=== PATIENT | female | born 1965 | race Native Hawaiian/Other Pacific Islander ===

== ENCOUNTER 2016-09-14 18:14 | Emergency (ER) | payer OTHER ==
[2016-09-14] MEDS ORDERED: ZOLPIDEM 5 MG TABLET PO PRN (22:50)
== END 2016-09-14 23:01 | disposition home or self-care (01) ==
DX: R20.8 Other disturbances of skin sensation (principal); G47.00 Insomnia, unspecified; F43.9 Reaction to severe stress, unspecified
CPT/HCPCS: 36415; 70450; 80048; 85025; 93880; 99283; 99284; A9270

== ENCOUNTER 2017-02-12 08:24 | Emergency (ER) | payer OTHER ==
[2017-02-12 08:33] VITALS: BP 153/78
--- NOTE | 2017-02-12 08:53 | ED Physician Documentation ---
History of Present Illness - Stated complaint Stated Complaint: FELL LT KNEE PX - Chief complaint Chief Complaint: Ext Problem - History obtained from History obtained from: Patient - Additonal information Additional information: She is a 51-year-old female without any significant medical history who fell on her left knee shortly prior to arrival. The patient slipped and fell with all of her weight on the left knee. She fell against relatively hard surface consisting of wood. She is ambulatory without too much difficulty on the leg but complains of localized pain to the kneecap. The knee is more painful with movement and better with rest. She denies any other knee or orthopedic injury. She denies any other injury to any other body part at this time. This was a slip and fall. Review of systems: For pertinent positive and negatives in the review of systems please see the history of present illness, otherwise all other systems have been reviewed and are negative. Dragon disclaimer: Parts of this medical record were created using voice recognition technology. Because of the inherent limitations of this system, occasional same sounding word substitutions do occur and persist despite proofreading. Please read the document for context. Review of Systems Musculoskeletal: reports: Joint pain, Joint swelling. 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 - Present Medications Home Medications: Ambulatory Orders Medication Instructions Recorded Confirmed Ibuprofen 600 mg PO TID PRN #14 tablet 02/12/17 Tramadol HCl 50 mg PO Q8HR PRN #14 tablet 02/12/17 - Allergies Allergies/Adverse Reactions: Allergies Allergy/AdvReac Type Severity Reaction Status Date / Time No Known Drug Allergies Allergy Verified 09/14/16 18:20 - Social History Does the pt smoke?: No Smoking Status: Never smoker Does the pt drink ETOH?: No Does the pt have substance abuse?: No PD ED PE NORMAL - Vitals Vital signs reviewed: Yes - General General: Alert and oriented X 3, No acute distress, Well developed/nourished - Extremities Extremities: No deformity, Other (On examination of the patient's patella there is isolated patellar tenderness. There is no significant medial, lateral tenderness.) Results - Vitals Vitals: Vital Signs - 24 hr 02/12/17 08:31 Temperature 36.6 C Heart Rate 68 Respiratory 12 Rate Blood Pressure 153/78 H O2 Saturation 96 Oxygen O2 Source Room air PD MEDICAL DECISION MAKING - ED course ED course: Patient fell on her left kneecap. She is tender about the kneecap and has some bruising already. There is no ligamentous laxity or limitation in range of motion testing of the affected left leg. Radiographically the patella appears normal. On reexamination there is a little more bruising but the injury appears to be isolated to patella only. I suspect she should do well she demonstrated ambulatory movement in emergency department without difficulty. I am discharging her home with recommendations to rest, ice, elevate and will prescribe a small amount anti-inflammatory and pain medication as needed. Disposition: To home Clinical impression: 1. Left patellar contusion Departure - Departure Disposition: Home, Self Care Clinical Impression: Patellar contusion Condition: Good Instructions: Kneecap and Knee Joint, ED Sprain Knee Follow-Up: Jazmin Velasquez ARNP [Primary Care Provider] - Prescriptions: Tramadol HCl 50 mg PO Q8HR PRN #14 tablet PRN Reason: Pain Ibuprofen 600 mg PO TID PRN #14 tablet PRN Reason: Pain
--- NOTE | 2017-02-12 09:31 | XRAY Preliminary Report ---
Exam: XR Knee 3 View LT IMPRESSION: Small to moderate amount of knee joint effusion and anterolateral knee soft tissues swell ing without evidence of fracture, bony injury or subluxation; internal derangement cannot be excluded . [facility] SITE ID: [id number]
--- NOTE | 2017-02-12 09:34 | XRAY Report ---
EXAM: RIGHT KNEE RADIOGRAPHY EXAM DATE: 02/12/2017 09:00 AM. CLINICAL HISTORY: Fall. COMPARISON: None. TECHNIQUE: 3 views. FINDINGS: Bones: No fractures or bone lesions. Joints: No significant degenerative arthritis. There is a small to moderate amount of effusion. No nguyen bluxations. Soft Tissues: There is anterior lateral knee soft tissue swelling without radiopaque foreign body or soft tissue calcification. IMPRESSION: Small to moderate amount of knee joint effusion and anterolateral knee soft tissues swell ing without evidence of fracture, bony injury or subluxation; internal derangement cannot be excluded . [facility] Referring Provider Line: [phone] SITE ID: [id number]
== END 2017-02-12 09:24 | disposition home or self-care (01) ==
LOC: ED 08:24
DX: S80.02XA Contusion of left knee, initial encounter (principal); W01.0XXA Fall on same level from slipping, tripping and stumbling without subsequent striking against object, initial encounter
CPT/HCPCS: 99283

== ENCOUNTER 2020-02-05 14:04 | Outpatient (CLI) | payer OTHER ==
[2020-02-05 14:53] VITALS: BP 122/80
--- NOTE | 2020-02-05 14:53 | SLEEP CARE CONSULTATION ---
Information from patient questionnaire entered by Teresa Cazares. I have reviewed and concur with the information entered by Teresa Cazares. This document represents the service I personally performed and the decisions made by me, Faith Diggs ARNP. History of Present Illness Service Date and Time: 02/05/2020 1404 Reason for Visit: New patient Chief Complaint: reports: Insomnia (hard to shut off mind to go to sleep), Unrefreshed sleep (usually not), Snoring, Fatigue (sometimes, with lack of sleep), Frequent awakenings at night (more since on new diet and increase in water consumption), Other (referral to determine for sleep apnea for pre-op bariatric surgery). denies: Excessive daytime sleepiness, Observed pauses in breathing Date of Onset: 5-6 years Usual bedtime: [id number] Time it takes to fall asleep: 1+ hours Snores at night: Yes Observed to quit breathing while asleep: No Sleeps alone due to snoring: No Number of times waking at night: 1-3 Reasons for waking at night: reports: Bathroom (void/urinate). denies: Choking, Snoring, Gasping for air, Pain, Other Toss, Turn, or Twitch while sleeping: Yes Recalls having dreams: Yes Usually gets out of bed at: [id number], sleeps into 0730 on weekends Feels refreshed in the morning: No Morning headache: No Sleepy or fatigued during the day: Yes (tired) Ever fallen asleep while driving: No Takes day naps: Yes (1-2 times a week, 12 minutes) Dreams during day naps: No Prior sleep studies: No Additional HPI information: I had the pleasure of seeing TRUPTI US today regarding the possibility of her having a sleep disorder. Her current complaints are unrefreshed sleep, daytime fatigue, snoring and evaluation for pre-bariatric surgery. 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 She normally stays up late because she cannot turn her mind off. She does snore, according to her , but he has not seen any pauses in breathing. She is in the process of preparing for bariatric surgery and states the surgeon wants her evaluated for sleep apnea. She is eating a low fat, high protein diet with an increase in water i ntake that is causing her to get up more often during the night for the bathroom. - Parasomnia Symptoms Ever been unable to move upon waking from sleep: No Walks in sleep: No Talks in sleep: No Ever acted out dreams in sleep: No Ever felt weak in the knees when startled or emotional: No Bothered by creepy, crawly, restless sensations in legs: No Problems with memory or concentration: No Subjective Initial [place] Sleepiness Scale score: 3 Past Medical History Past Medical History: reports: Arrythmia (slight heart murmur), Anxiety, Other (trigeminal neuralgia and Sjorgens with unspecified organ involvement (CMS/HCC)). 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 Patient is and lives in [place]. Have you smoked in the past 12 months: No Alcohol use: Yes Alcohol amount and frequency: 5 glasses a year Caffeine use: Yes Caffeine amount and frequency: 0-1 cup for 3-4 times a week; stopped in last few weeks to prepare for surg Family History Family history of sleep disordered breathing: Yes Family Hx Sleep Apnea: Mother: Snoring, Sibling: Snoring, Sleep apnea - Treated Allergies and Home Medications Drug allergies reviewed: Yes (NKDA) Home medication list reviewed: Yes (not taking prescribed med for trigeminal neuralgia; Calcium and MVT) Review of Systems Weight gain over past 5 years: 30+ Cardiovascular: reports: other (heart murmur - mild). denies: high blood pressure, palpitations, chest pain, irregular heart rate or pulse, leg or foot swelling Respiratory: denies: shortness of breath, wheeze, chronic cough Gastrointestinal: reports: nausea, diarrhea, other (IBS). denies: heartburn, difficulty swallowing Urinary: denies: incontinence Neurological: denies: headaches, seizure, head trauma, speech dysfunction, gait or balance problems Psychiatric: reports: anxiety. denies: Attention Deficit Hyperactivity, depression Ear/Nose/Throat: reports: dry mouth/throat (since last year, not taking medication due to nausea reaction), wisdom teeth removed. denies: nasal congestion, sinus problems, nose bleeds, hoarseness, injury to nose, tonsillectomy Endocrine: denies: thyroid disease Musculoskeletal: reports: joint pain, joint swelling. denies: muscle pain or cramping, mobility problems Immunologic: reports: other (eczema, seasonal). denies: allergies to food or environment Physical Exam Blood Pressure: 122/80 Cuff size: long Heart Rate: 72 O2 Saturation: 98 Height: 5 ft 1.5 in Weight: 247 lb 9.6 oz Body Mass Index: 46.0 BMI Classification: Morbidly Obese Neck circumference: 16 (inches) HEENT: No craniofacial malformation Nostrils: patent to airflow Turbinates: normal Septum: midline Mouth and throat: narrow oropharynx Soft palate: normal Hard palate: normal Uvula: normal Uvula visualization: 25% Mallampati Class III Tongue: normal in size Tonsils: 1+ Chin and jaw: normal size and position Neck: normal w/o lymphadenopathy or thyromegaly Heart: regular rate and rhythm Lungs: clear bilaterally Impression and Plan 1. Suspected Obstructive Sleep Apnea-Hypopnea Syndrome, as suggested by a history of loud and irregular snoring, insomnia, unrefreshed sleep, and excessive daytime sleepiness. Patient is being prepared for bariatric surgery and needs BOB evaluation as well prior to surgery. Narrow oropharynx and obesity are common predisposing factors for obstructive sleep apnea-hypopnea syndrome. I recommend proceeding to polysomnography to confirm the diagnosis and to assess severity. If the patient has significant sleep disordered breathing, a manual CPAP titration study will also be performed to find the optimal treatment pressure. I informed the patient of what the sleep studies involve and after some discussion, obtained agreement to proceed. The pathophysiology of obstructive sleep apnea-hypopnea syndrome was discussed with the patient and health risks of cardiovascular and cerebrovascular disease if not treated. AASM brochure for obstructive sleep apnea-hypopnea syndrome given and reviewed. Risks of drowsy driving discussed in detail and patient advised to avoid long distance driving and to ice puller at the first sign of drowsiness. Patient agreed to plan. * Schedule polysomnography +- manual CPAP titration study. * Avoid long distance driving or driving when feeling sleepy. * Avoid alcohol, sedative and muscle relaxant around bedtime. * Continue to attempt to lose weight. * Review instructions provided by trained office staff on how to prepare for the sleep study. * Return for follow-up after sleep study completed. Visit Type: In Office Time Spent with Patient (minutes): 32 Provider Statement: I spent 100% of the Face to Face Visit with the patient with greater than 50% spent counseling the patient and coordination of care.
== END 2020-02-05 14:05 | disposition home or self-care (01) ==
LOC: SC 14:04
PROVIDERS: ATTEND Nurse Practitioner Family
DX: R06.83 Snoring (principal); G47.10 Hypersomnia, unspecified; G47.8 Other sleep disorders; E66.01 Morbid (severe) obesity due to excess calories; Z68.42 Body mass index [BMI] 45.0-49.9, adult
CPT/HCPCS: 99204; 99212

== ENCOUNTER 2020-03-05 19:30 | Outpatient (CLI) | payer OTHER | END 2020-03-05 23:59 | disposition home or self-care (01) | LOC: SC 19:30 | PROVIDERS: ATTEND Nurse Practitioner Family | DX: G47.33 Obstructive sleep apnea (adult) (pediatric) (principal); E66.01 Morbid (severe) obesity due to excess calories; Z68.42 Body mass index [BMI] 45.0-49.9, adult | CPT/HCPCS: 95806 ==

== ENCOUNTER 2020-03-13 09:48 | Outpatient (CLI) | payer OTHER ==
--- NOTE | 2020-03-13 10:36 | SLEEP CARE CONSULTATION ---
Information from patient questionnaire entered by Loree Soni. I have reviewed and concur with the information entered by Loree Soni. This document represents the service I personally performed and the decisions made by , Faith Diggs ARNP. History of Present Illness Service Date and Time: 03/13/2020947 Initial [place] Sleepiness Scale score: 3 (in 2020) Current [place] Sleepiness Scale score: 6 Additional HPI information: TRUPTI US returns for follow up and results of the recently performed home sleep study. I explained the pathophysiology behind obstructive sleep apnea. We then spent quite a bit of time discussing different treatment options. For mild obstructive sleep apnea, surgery and oral appliance are alternatives to nasal CPAP therapy but in moderate or severe cases, nasal CPAP is the most effective and reliable treatment. Because apnea is primarily in supine position, then positional management therapy could be effective. Methods discussed such as positioning with pillows, using a T-shirt with tennis balls in the back, and shown commercial products that have a pillow format on back to prevent supine sleep. I reviewed the impact of weight changes on sleep apnea and strongly recommended losing weight. After some discussion, the patient would like to think about CPAP therapy or oral appliance. She was given the AASM pamphlets for Non-pap treatments and Pap treatment tips and reviewed with patient. Sleep Study - Results Type of Sleep Study: Home sleep study Prior sleep studies: No Polysomnography/Home Sleep Study results: Based on 4% Calculation: The AHI 4% calculation of 9.1 per hour of recording time was based on a total of 4 scored apneas and 65 scored hypopneas with 4% desaturations. Supine AHI4%: 11.4 per hour. Non-supine AHI4%: 5.1 per hour. Oxygen Summary: Patient's baseline O2 saturation was 93.9 %. The patient spent 26.9 minutes at an oxygen saturation less than 90%, and 1.2 minutes less than 85%. The desaturation index was 10.3 events per hour sleep time. The lowest saturation was 78.7 %. SNORING: The percent of the study time spent snoring was 0.0 %. The Snoring Count was 1 . The Snoring Index was 0.1 . PULSE RATE REVIEW: The mean heart rate was 59 beats per minute. The rate ranged from a low of 35 to a high of 75 beats per minute. DIAGNOSIS CODE: Obstructive Sleep Apnea G47.33 This patient has mild obstructive sleep apnea associated with moderate hypoxia, occurring more frequently during supine sleep. Allergies and Home Medications Drug allergies reviewed: Yes (NKDA) Home medication list reviewed: Yes (OTC vitamin D) Review of Systems Review of systems same as previous: Yes (no changes) Physical Exam Heart Rate: 77 O2 Saturation: 95 Height: 5 ft 1.5 in Weight: 234 lb Body Mass Index: 43.4 BMI Classification: Morbidly Obese Impression and Plan 1. Obstructive Sleep Apnea-Hypopnea Syndrome, mild, with lowest oxygen satura tion of 78.7%. Obviously this is the cause of the patients symptoms of unrefreshed sleep, and excessive daytime sleepiness. Positive pressure therapy could benefit her anxiety and improve overall health. As mentioned above, we discussed thoroughly the different options for therapy of her BOB and the patient will consider her options between an oral device and CPAP therapy. Since her apnea is more severe supine she was cautioned to sleep on her side until her new therapy is in place. * Patient to notify us of her choice of therapy. * Continue efforts to lose weight. * Avoid alcohol consumption near bedtime. * Avoid supine sleep * The patient is again cautioned about driving until sleepiness completely resolves. * Return in 1-2 months after CPAP obtained or 3 months after oral appliance. I will assess response to therapy and compliance at that time. Visit Type: In Office Time Spent with Patient (minutes): 25 Provider Statement: I spent 100% of the Face to Face Visit with the patient with greater than 50% spent counseling the patient and coordination of care.
== END 2020-03-13 09:49 | disposition home or self-care (01) ==
LOC: SC 09:48
PROVIDERS: ATTEND Nurse Practitioner Family
DX: G47.33 Obstructive sleep apnea (adult) (pediatric) (principal); E66.01 Morbid (severe) obesity due to excess calories; Z68.41 Body mass index [BMI] 40.0-44.9, adult
CPT/HCPCS: 99212; 99213

== ENCOUNTER 2020-06-23 13:36 | Outpatient (CLI) | payer OTHER ==
--- NOTE | 2020-06-24 13:19 | Mammography Report ---
BILATERAL DIGITAL SCREENING MAMMOGRAM 3D/2D: 06/23/2020 CLINICAL: Routine screening. Comparison is made to exams dated: 02/08/2018 mammogram, 09/30/2016 mammogram, and 09/30/2015 mammogram - [facility]. There are scattered fibroglandular elements in both breasts. No significant masses, calcifications, or other findings are seen in either breast. There has been no significant interval change. IMPRESSION: NEGATIVE There is no mammographic evidence of malignancy. A 1 year screening mammogram is recommended. This exam was interpreted at Station ID: [id number]. NOTE: For mammograms, a report in lay terms will be sent to the patient. Approximately 15% of breast malignancies will not be visualized mammographically. In the management of a palpable breast mass, a negative mammogram must not discourage biopsy of a clinically suspicious lesion. Electronically Signed By: Josh Lynn M.D., jr/peter:06/23/2020 16:55:34 ACR BI-RADS Category 1: Negative [id number] PARENCHYMAL PATTERN: (A) - The breast(s) demonstrate(s) scattered fibroglandular densities. BI-RADS CATEGORY: (1) - 1 RECOMMENDATION: (ANNUAL) - Recommend routine annual screening mammography. [id number] 1 year screening LATERALITY: (B)
== END 2020-06-23 13:37 | disposition home or self-care (01) ==
LOC: DI.N 13:36
DX: Z12.31 Encounter for screening mammogram for malignant neoplasm of breast (principal)
CPT/HCPCS: 77067

== ENCOUNTER 2020-08-21 12:53 | Outpatient (CLI) | payer OTHER ==
--- NOTE | 2020-08-21 13:23 | SLEEP CARE CONSULTATION ---
Information from patient questionnaire entered by Loree Soni. I have reviewed and concur with the information entered by Loree Soni. This document represents the service I personally performed and the decisions made by me, Faith Diggs ARNP. History of Present Illness Service Date and Time: 08/21/2020 1253 Previous diagnosis: Mild, Obstructive Sleep Apnea-Hypopnea Syndrome AHI: 9.1 (in 2019) Reason for follow up: other (3 month with oral appliance) Prior sleep studies: Yes Year and Where: 2019 - [facility] Type of Sleep Study: Home sleep study HPI additional information: TRUPTI US was diagnosed to have mild, AHI 9.1, obstructive sleep apnea- hypopnea syndrome and returned today for oral appliance therapy three month follow-up. CPAP Compliance Data Compliance data discussion: She has been using the oral appliance nightly since receiving it since May 15, 2020. She took it out early only twice since then. She states it is very comfortable with occasional rubbing of device on sides of her mouth. She started with bands for the first 1.5 months but found them restrictive and stopped using them. 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 She has to get up several times a night to take care of her mother. She had her bariatric surgery and has lost a total of about 80 pounds. Subjective Initial [place] Sleepiness Scale score: 3 (in 2019) Current [place] Sleepiness Scale score: 6 Allergies and Home Medications Drug allergies reviewed: Yes (NKDA) Home medication list reviewed: Yes (omeprazole) Review of Systems Review of systems same as previous: No ([facility] weight loss surgery 05/2020) Physical Exam Heart Rate: 67 O2 Saturation: 95 Height: 5 ft 1.5 in Weight: 180 lb Weight change since last visit: 54 loss Body Mass Index: 33.4 BMI Classification: Obese Impression and Plan 1. Obstructive Sleep Apnea-Hypopnea Syndrome, mild, who has been on oral appliance therapy. On oral appliance therapy, the patient has better sleep quality and is more rested overall. Her husbands states she is not gasping during the night or having any pauses in breathing. She does not wake up with headaches. She is currently dealing with lots of life stressors including being a caregiver for her mother. She has no complaints with use of the oral appliance and states it is very comfortable. She did not have sleepiness symptoms prior to her last sleep study, it was just done prior to her bariatric surgery. Her current [place] is 6/24. We need to check effectiveness of her oral appliance and will order a HST/PSG to verify this. She would prefer to do a HST if possible. Patient's apnea severity and rationale for treatment to reduce apnea, improve sleep quality and reduce cardiovascular and cerebrovascular events was reviewed. * Continue oral appliance * Sleep study ordered to evaluate therapy efficiency * Continue to lose weight * Return for follow up after sleep study completed, or sooner if concerns arise Counseling Topics: Weight loss health impact Visit Type: In Office Time Spent with Patient (minutes): 21 Provider Statement: I spent 100% of the Face to Face Visit with the patient with greater than 50% spent counseling the patient and coordination of care.
== END 2020-08-21 12:54 | disposition home or self-care (01) ==
LOC: SC 12:53
PROVIDERS: ATTEND Nurse Practitioner Family
DX: G47.33 Obstructive sleep apnea (adult) (pediatric) (principal); E66.9 Obesity, unspecified; Z68.33 Body mass index [BMI] 33.0-33.9, adult
CPT/HCPCS: 99212; 99213

== ENCOUNTER 2020-09-16 11:02 | Outpatient (CLI) | payer OTHER | END 2020-09-16 11:03 | disposition home or self-care (01) | LOC: SC 11:02 | PROVIDERS: ATTEND Nurse Practitioner Family | DX: R09.02 Hypoxemia (principal) | CPT/HCPCS: 95806 ==

== ENCOUNTER 2020-10-01 11:06 | Outpatient (CLI) | payer OTHER ==
--- NOTE | 2020-10-01 11:38 | SLEEP CARE CONSULTATION ---
Information from patient questionnaire entered by Loree Soni. I have reviewed and concur with the information entered by Loree Soni. This document represents the service I personally performed and the decisions made by , Faith Diggs ARNP. History of Present Illness Service Date and Time: 10/01/2020 1106 Initial [place] Sleepiness Scale score: 3 (in 2019) Current [place] Sleepiness Scale score: 4 Additional HPI information: TRUPTI US returns for follow up and results of the recently performed home sleep study with oral appliance to check effectiveness of treatment. The patient was informed of the following findings: no significant sleep disordered breathing with an AHI of 4.0 and [place] oxygen saturation of 82%. Her supine AHI is 7.4 and nonsupine 0.98. Sleep Study - Results Type of Sleep Study: Home sleep study (with oral appliance) Prior sleep studies: Yes Year and Where: 2019 - [facility] Polysomnography/Home Sleep Study results: Physician Impression: The quality of the study is good. The length of the study is adequate (> 240 minutes). Please also see the tabulated and graphic data. 1. No significant sleep disordered breathing, with an AHI of 4.0/hr and [place] SaO2 of 82%. During the study, the patient had 3 apneas (3 obstructive, 0 central, 0 mixed) and 28 hypopneas. The longest episode lasted 64.0 seconds. The few respiratory events occurred almost exclusively during supine sleep (supine AHI was 7.4 and non-supine, 0.98). 2. Hypoxemia (ICD-10 R09.02), mild, with the lowest oxygen saturation of 82 % and 19.2 minutes with SaO2 under 90%. Baseline oxygen saturation was normal (Average oxygen saturation was 92%). Allergies and Home Medications Home medication list reviewed: Yes (stopped omeprazole) Review of Systems Review of systems same as previous: Yes (no changes) Physical Exam Heart Rate: 70 O2 Saturation: 98 Height: 5 ft 1.5 in Weight: 169 lb Body Mass Index: 31.4 BMI Classification: Obese Impression and Plan 1. Obstructive Sleep Apnea-Hypopnea Syndrome, mild. Patient returns after HST to check effectiveness of the oral appliance. Her [place] today is 4/24. She does feel overall more rested. The oral device is comfortable and easy to use. She still has a supine AHI of 7.4 and she was advised to adjust her oral device and follow up with her dentist as needed. She was advised to sleep more on her side because she is in normal range nonsupine. She has some shoulder pain issues since an injury which limits the time she can sleep on her sides. I advised to adjust her device and limit time on her back. She is to follow up in about 6 months to recheck how she is doing, sooner if needed. She has had bariatric surgery and may still be able to lose up to 30 pounds which can reduce severity of her sleep apnea. She was encouraged to continue to lose weight and we will check in with her. We may need to retest her after significant weight loss. She voiced understanding and agreement with plan of care. * Continue oral appliance * Continue to try to lose weight * Return for follow up in 6 months, or sooner if concerns arise Counseling Topics: Sleeping position, Weight loss health impact Visit Type: In Office Time Spent with Patient (minutes): 18 Provider Statement: I spent 100% of the Face to Face Visit with the patient with greater than 50% spent counseling the patient and coordination of care.
== END 2020-10-01 11:07 | disposition home or self-care (01) ==
LOC: SC 11:06
PROVIDERS: ATTEND Nurse Practitioner Family
DX: G47.33 Obstructive sleep apnea (adult) (pediatric) (principal); E66.9 Obesity, unspecified; Z68.31 Body mass index [BMI] 31.0-31.9, adult
CPT/HCPCS: 99212

== ENCOUNTER 2021-03-27 13:08 | Outpatient (CLI) | payer OTHER ==
[2021-03-27 13:40] VITALS: BP 121/78
--- NOTE | 2021-03-27 13:40 | SLEEP CARE CONSULTATION ---
Information from patient questionnaire entered by Teresa Cazares. I have reviewed and concur with the information entered by Teresa Cazares. This document represents the service I personally performed and the decisions made by me, Faith Diggs ARNP. History of Present Illness Service Date and Time: 03/27/2021 1308 Previous diagnosis: Mild, Obstructive Sleep Apnea-Hypopnea Syndrome AHI: 9.1 (in 2019) Reason for follow up: six month (with oral device) Prior sleep studies: Yes Year and Where: 2019 - [facility] Type of Sleep Study: Home sleep study (with oral appliance) HPI additional information: TRUPTI US was diagnosed to have mild, AHI 9.1, obstructive sleep apnea- hypopnea syndrome and returned today for oral appliance therapy six month follow-up. Sleep Study - Results Type of Sleep Study: Home sleep study (with oral appliance) Prior sleep studies: Yes Year and Where: 2019 - [facility] CPAP Compliance Data Compliance data discussion: She does wear her oral appliance for BOB and bruxism. She does not feel she gets time to get enough sleep due to taking care of her mother. She only gets about 7 hours of sleep at night. She gets up early to be able to exercise before her mother gets up. Her has not been told her that she is snoring with the oral appliance in. Subjective Initial [place] Sleepiness Scale score: 3 (in 2019) Current [place] Sleepiness Scale score: 4 Allergies and Home Medications Home medication list reviewed: Yes (no changes) Review of Systems Review of systems same as previous: Yes (no changes) Physical Exam Blood Pressure: 121/78 (left wrist) Cuff size: wrist Heart Rate: 55 O2 Saturation: 96 Height: 5 ft 1.5 in Weight: 141 lb Weight change since last visit: 28 lb loss Body Mass Index: 26.2 BMI Classification: Overweight Impression and Plan 1. Obstructive Sleep Apnea-Hypopnea Syndrome, mild. 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 Patient was seen about 3 months ago and she has lost 28 pounds in that time period. She has been eating nutritiously and exercising daily with good results. Patient cannot say that the oral appliance is helping with her sleep and the strain from wearing the oral appliance does cause fatigue of her jaw muscles. I feel with her significant weight loss that we should re-evaluate if patient still needs to use the oral appliance to control her sleep apnea. Patient agrees and would like to do a HST because she needs to be home to take care of her mother. I will order a sleep study and she will be notified if we get authorization to move forward. * Continue oral appliance therapy * Follow up PSG/HST to recheck diagnosis and severity * Call dentist with any problems with oral appliance fit * Continue to try to lose weight * Call this office if any problems * Return for follow up after sleep study completed, or sooner if concerns arise Counseling Topics: Weight loss health impact, Weight control Visit Type: In Office Time Spent with Patient (minutes): 23 Provider Statement: I spent 100% of the Face to Face Visit with the patient with greater than 50% spent counseling the patient and coordination of care.
== END 2021-03-27 13:09 | disposition home or self-care (01) ==
LOC: SC 13:08
PROVIDERS: ATTEND Nurse Practitioner Family
DX: G47.33 Obstructive sleep apnea (adult) (pediatric) (principal)
CPT/HCPCS: 99212; 99213

== ENCOUNTER 2021-04-07 12:28 | Outpatient (CLI) | payer OTHER | END 2021-04-07 12:29 | disposition home or self-care (01) | LOC: SC 12:28 | PROVIDERS: ATTEND Nurse Practitioner Family | DX: G47.33 Obstructive sleep apnea (adult) (pediatric) (principal) | CPT/HCPCS: 95806 ==

== ENCOUNTER 2021-04-16 11:12 | Outpatient (CLI) | payer OTHER ==
[2021-04-16 11:41] VITALS: BP 102/59
--- NOTE | 2021-04-16 11:41 | SLEEP CARE CONSULTATION ---
Information from patient questionnaire entered by Prieto Pinto MA. I have reviewed and concur with the information entered by Prieto Pinto MA. This document represents the service I personally performed and the decisions made by Caterina bell Caren J, ARNP. History of Present Illness Service Date and Time: 04/16/2021 1112 Initial [place] Sleepiness Scale score: 3 (in 2019) Current [place] Sleepiness Scale score: 7 (2020) Additional HPI information: TRUPTI US returns for follow up and results of the recently performed home sleep study. The patient was informed of the following findings: No significant sleep disordered breathing with an average AHI of 2.5 and [place] oxygen saturation of 85%. I explained the pathophysiology behind obstructive sleep apnea. Patient does not have sleep apnea and was advised how weight gain could increase the risk of developing sleep apnea in the future. Patient has moderate snoring. Snoring can be reduced by weight loss. Weight loss is best achieved with diet consult. Patient instructed to contact PCP for referral. Snoring can also be treated with an oral appliance from a dentist. Advised to check insurance coverage. In addition, an ENT evaluation can be do to see if other treatment is indicated. Sleep Study - Results Prior sleep studies: Yes Year and Where: 2019 - [facility] Polysomnography/Home Sleep Study results: Physician Impression: The quality of the study is good. The length of the study is adequate (> 240 minutes). Please also see the tabulated and graphic data. 1. No significant sleep disordered breathing, with an AHI of 2.5/hr and [place] SaO2 of 85%. During the study, the patient had 3 apneas (3 obstructive, 0 central, 0 mixed) and 16 hypopneas. The longest episode lasted 50.5 seconds. The few respiratory events occurred more frequently during supine sleep (supine AHI was 3.6 and non-supine, 0.39). 2. Hypoxemia (ICD-10 R09.02), minimal, with the lowest oxygen saturation of 85 % and 1.6 minutes with SaO2 under 90%. Baseline oxygen saturation was normal (Average oxygen saturation was 93%). Physical Exam Vital signs obtained and entered by: KATHIA Alamo Blood Pressure: 102/59 (left) Cuff size: wrist Heart Rate: 57 O2 Saturation: 95 (mask) Height: 5 ft 1.5 in Weight: 140 lb (without boots) Body Mass Index: 26.0 BMI Classification: Overweight Impression and Plan Snoring but no significant sleep disordered breathing. Patient no longer needs to wear her oral appliance for her sleep apnea as her weight loss and improvement of her overall health has reduced severity and she no longer needs treatment. Patient advised to maintain her healthy weight. She does grind her teeth and will follow up with her dentist to update her old device. Patient is advised to check if insurance will cover. An ENT consult can also be helpful to determine if any other treatment is an option. * Discontinue oral appliance * Maintain a healthy weight * Return as needed. Counseling Topics: Weight control Visit Type: In Office Time Spent with Patient (minutes): 13 Provider Statement: I spent 100% of the Face to Face Visit with the patient with greater than 50% spent counseling the patient and coordination of care.
== END 2021-04-16 11:13 | disposition home or self-care (01) ==
LOC: SC 11:12
PROVIDERS: ATTEND Nurse Practitioner Family
DX: R06.83 Snoring (principal)
CPT/HCPCS: 99212

== ENCOUNTER 2023-01-08 06:05 | Emergency (ER) | payer OTHER ==
[2023-01-08 06:40] LABS: BILIRUBIN,URINE NEGATIVE (NEGATIVE); GLUCOSE, URINE (UA) NEGATIVE (NEGATIVE); KETONES,URINE (UA) NEGATIVE (NEGATIVE); LEUKOCYTE ESTERASE, URINE TRACE (NEGATIVE); NITRITE,URINE NEGATIVE (NEGATIVE); OCCULT BLOOD,URINE LARGE (NEGATIVE); PH,URINE 6.5 PH (5.0-7.5); PROTEIN,URINE >=300 mg/dL (NEGATIVE); UROBILINOGEN,URINE 0.2 (NORMAL) E.U./dL (NORMAL)
[2023-01-08 06:42] LABS: CLARITY,URINE BLOODY (CLEAR)
[2023-01-08 06:43] LABS: BACTERIA,URINE Rare /HPF (None Seen); RBC,URINE TNTC /HPF (0-5); SQUAMOUS EPITHELIAL CELL,UR RARE Squamous (<= Few)
--- NOTE | 2023-01-08 07:06 | ED Physician Documentation ---
PD HPI FEMALE - Stated complaint Stated Complaint: FEMALE - Chief complaint Chief Complaint: UTI - History obtained from History obtained from: Patient - History of Present Illness Timing - onset: Yesterday Timing - duration: Days (1) Timing - details: Abrupt onset, Still present Associated symptoms: Dysuria, Urinary frequency, Hematuria (today). No: Fever, Vaginal discharge Recently seen: Not recently seen (UTIs not for several years) Review of Systems Constitutional: denies: Fever, Chills GI: denies: Abdominal Pain, Vomiting, Diarrhea : reports: Dysuria, Frequency. 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 - Present Medications Home Medications: Ambulatory Orders Medication Instructions Recorded Confirmed Phenazopyridine HCl [Pyridium] 100 mg PO TID PRN #15 tablet 01/08/23 cephALEXin [Keflex] 500 mg PO TID #20 cap 01/08/23 - Allergies Allergies/Adverse Reactions: Allergies Allergy/AdvReac Type Severity Reaction Status Date / Time No Known Drug Allergies Allergy Verified 01/08/23 06:20 - Social History Does the pt smoke?: No Smoking Status: Never smoker Does the pt drink ETOH?: No Does the pt have substance abuse?: No PD ED PE NORMAL - Vitals Vital signs reviewed: Yes - General General: Alert and oriented X 3, No acute distress, Well developed/nourished - Back Back: No CVA TTP - Derm Derm: Normal color, Warm and dry - Neuro Eye Opening: Spontaneous Motor: Obeys Commands Verbal: Oriented GCS Score: 15 Results - Vitals Vitals: Oxygen O2 Source Room air - Labs Labs: Microbiology 01/08/23 06:20 Urine Culture - Preliminary Urine,Clean Catch Laboratory Tests 01/08/23 06:20 Urine Color YELLOW Urine Clarity BLOODY Urine pH 6.5 Ur Specific [place] 1.025 Urine Protein >=300 H Urine Glucose (UA) NEGATIVE Urine Ketones NEGATIVE Urine Occult Blood LARGE H Urine Nitrite NEGATIVE Urine Bilirubin NEGATIVE Urine Urobilinogen 0.2 (NORMAL) Ur Leukocyte Esterase TRACE H Urine RBC TNTC H Urine WBC 4-5 Ur Squamous Epith Cells RARE Squamous Urine Bacteria Rare Ur Microscopic Review INDICATED Urine Culture Comments INDICATED PD Medical Decision Making - ED course Complexity details: considered differential (symptoms c/w UTI and the UA is consistent. will treat as UTI with Keflex pending culture. ), d/w patient Departure - Departure Disposition: 01 Home, Self Care Clinical Impression: Urinary tract infection, Dysuria Record reviewed to determine appropriate education?: Yes Instructions: ED UTI Cystitis Female Follow-Up: LILIAN REAL ARNP [Primary Care Provider] - Prescriptions: cephALEXin [Keflex] 500 mg PO TID #20 cap Phenazopyridine HCl [Pyridium] 100 mg PO TID PRN #15 tablet PRN Reason: Abdominal Pain Comments: your bladder is empty, so you are able to void/urinate. The feeling of having to go often would be the irritation ofthe infection. Take Keflex antibiotic and pyridium for the discomfort as directed. I sent the scripts to your pharmacy. Stay well hydrated. Tylenol or Ibuprofen as needed for pains too. I would expect improvement over the next 1-2 days. Forms: PCP List Discharge Date/Time: 01/08/23 08:22
[2023-01-08] MEDS ORDERED: PHENAZOPYRIDINE 100 MG TABLET PO STA (07:17)
[2023-01-08] MEDS ORDERED: IBUPROFEN 400 MG TABLET PO STA (07:17)
[2023-01-08] MEDS ORDERED: cephALEXin 250 MG CAPSULE PO STA (07:17)
[2023-01-08 08:25] VITALS: BP 118/71
== END 2023-01-08 08:22 | disposition home or self-care (01) ==
LOC: ED 06:05
DX: N39.0 Urinary tract infection, site not specified (principal); B96.20 Unspecified Escherichia coli [E. coli] as the cause of diseases classified elsewhere
CPT/HCPCS: 81001; 87077; 87086; 87181; 99283; A9270; 81003